=== PATIENT | female | born 1940 | race Caucasian/White ===

== ENCOUNTER → 2017-05-20 | Outpatient (CLI) | payer OTHER | LOC: FIMAGING 13:14 | PROVIDERS: ATTEND Internal Medicine | DX: M79.89 Other specified soft tissue disorders (principal) ==

== ENCOUNTER → 2017-10-25 | Outpatient (CLI) | payer OTHER | LOC: FIMAGING 12:46 | PROVIDERS: ATTEND Internal Medicine | DX: Z12.31 Encounter for screening mammogram for malignant neoplasm of breast (principal) | CPT/HCPCS: G0202 ==

== ENCOUNTER → 2018-08-15 | Outpatient (CLI) | payer OTHER ==
[~2018-08-15] MED LIST: IOPAMIDOL (ISOVUE-300) 100 ML BTL ONE
== END ==
LOC: FIMAGING 15:43
PROVIDERS: ATTEND Urology
DX: N13.0 Hydronephrosis with ureteropelvic junction obstruction (principal); K57.30 Diverticulosis of large intestine without perforation or abscess without bleeding; C67.9 Malignant neoplasm of bladder, unspecified; Z85.038 Personal history of other malignant neoplasm of large intestine
CPT/HCPCS: 74178; Q9967

== ENCOUNTER 2018-09-26 14:29 | Observation (INO) | payer OTHER ==
[~2018-09-26 14:29] MED LIST changes: -IOPAMIDOL (ISOVUE-300) 100 ML BTL ONE; +VANCOMYCIN 1.25 GM in NS 250 ML IV ONE; +VANCOMYCIN PHARMACY TO DOSE MISC ONE
[2018-09-26] MEDS ORDERED: LR 1,000 ML IV ONE (14:47)
[2018-09-26] MEDS ORDERED: EPINEPHrine 1 MG/ML INJ ONE (15:36)
[2018-09-26] MEDS ORDERED: BUPIVACAINE 0.25% 30 ML SDV ONE (15:36)
[2018-09-26] MEDS ORDERED: LIDOCAINE 1% 300 MG/30 ML SDV ONE (15:37)
[2018-09-26] MEDS ORDERED: HEPARIN 1000 UNIT/1 ML MDV ONE ×3 (15:37→19:13)
[2018-09-26] MEDS ORDERED: DEXAMETHASONE 4 MG/ML VIAL IVP PRN (15:40)
[2018-09-26] MEDS ORDERED: ACETAMINOPHEN 500 MG TAB PO PRN (15:40)
[2018-09-26] MEDS ORDERED: MIDAZOLAM 2 MG/2 ML VIAL IVP ONE ×2 (15:40→19:00)
[2018-09-26] MEDS ORDERED: ALBUTEROL 3 ML DEYVIAL IH PRN ×2 (15:40→19:00)
[2018-09-26] MEDS ORDERED: oxyCODONE IR 5 MG TAB PO PRN (15:40)
[2018-09-26] MEDS ORDERED: HYDROmorphONE/DILAUDID 2 MG/ML INJ IVP PRN (15:40)
[2018-09-26] MEDS ORDERED: LR 500 ML IV PRN (15:40)
[2018-09-26] MEDS ORDERED: NALOXONE HCL 0.4 MG/ML INJ IVP PRN ×2 (15:40→19:00)
[2018-09-26] MEDS ORDERED: ONDANSETRON 4 MG/2 ML VIAL IVP PRN ×2 (15:40→19:00)
--- NOTE | 2018-09-26 15:44 | PDANEPAE ---
ANE History of Present Illness Portacat ANE Past Medical History - Cardiovascular History Hx Hypertension: Yes Hx Arrhythmias: Yes Hx Chest Pain: No Hx Coronary Artery / Peripheral Vascular Disease: No Hx CHF / Valvular Disease: No Hx Palpitations: No Cardiovascular History Comment: second degree AV block type 1. htn. mixed hyperlipidemia. [place] [facility] [place] Pulmonary History Hx COPD: No Hx Asthma/Reactive Airway Disease: Yes Hx Recent Upper Respiratory Infection: No Hx Oxygen in Use at Home: No Hx Sleep Apnea: No Sleep Apnea Screening Result - Last Documented: Positive Pulmonary History Comment: asthma- instructed pt to bring inhalers. aranza positive- uses cpap- instructed pt to bring to hospital - Neurologic History Hx Cerebrovascular Accident: No Hx Seizures: No Hx Dementia: No - Endocrine History Hx Diabetes: No Endocrine History Comment: hypothyroidism - Renal History Hx Renal Disorders: Yes Renal History Comment: current bladder ca. hx of uti's - Liver History Hx Hepatic Disorders: No - Neurological & Psychiatric Hx Hx Neurological and Psychiatric Disorders: No Neurological / Psychiatric History Comment: anxious about cancer and what she is facing - Cancer History Hx Cancer: Yes Cancer History Comment: bladder currently. hx of colon ca in 2014 - Congenital Disorder History Hx Congenital Disorders: No - GI History Hx Gastrointestinal Disorders: Yes Gastrointestinal History Comment: hx of colon ca. tends towards constipation- uses otc and fiber supplements - Other Health History Other Health History: wears reading glasses. dental implants - Chronic Pain History Chronic Pain: No - Surgical History Prior Surgeries: tumor removal in bladder 4 weeks ago at [facility] with Fronzak. colon resection with Johs 09/2015. cysto with tumor resection with Rose and 2006 ANE Review of Systems Review of Systems: - Exercise capacity METS (RN): 4 METS ANE Patient History - Allergies Allergies/Adverse Reactions: SILVINO Inhibitors [Silvino Inhibitors] Allergy (Verified 09/22/18 11:05) angiodema formoterol [From Dulera] Allergy (Verified 09/22/18 11:05) terrible chest pains mometasone furoate [From Dulera] Allergy (Verified 09/22/18 11:05) terrible chest pains Penicillins Allergy (Verified 09/22/18 11:05) Rash bcg chemo drug Allergy (Uncoded 09/22/18 11:05) - Home Medications Home Medications: Atorvastatin Calcium [Lipitor 20 mg (*)] 06/17/12 [Last Taken 09/25/18] Levothyroxine [Synthroid 88 mcg (*)] 06/17/12 [Last Taken 09/26/18] Herbals/Supplements -Info Only 09/22/18 [Last Taken 09/22/18] Proair Hfa 09/22/18 [Last Taken 09/26/18] Qvar Redihaler 09/22/18 [Last Taken 09/26/18] amLODIPine BESYLATE [Norvasc 2.5 mg (*)] 20 mg 09/22/18 [Last Taken 09/26/18] - NPO status NPO Since - Liquids (Date): 09/26/18 NPO Since - Liquids (Time): 07:00 NPO Since - Solids (Date): 09/26/18 NPO Since - Solids (Time): 03:00 - Smoking Hx Smoking Status: Never smoked - Family Anes Hx Family Hx Anesthesia Complications: none ANE Labs/Vital Signs - Vital Signs Blood Pressure: 152/71 Heart Rate: 74 Respiratory Rate: 16 O2 Sat (%): 95 Height: 160.02 cm Weight: 84.368 kg ANE Physical Exam - Airway Neck exam: FROM Mallampati Score: Class 2 Mouth exam: normal dental/mouth exam - Pulmonary Pulmonary: clear to auscultation - Cardiovascular Cardiovascular: regular rate and rhythym - ASA Status ASA Status: III ANE Anesthesia Plan Anesthesia Plan: GA with mask
[2018-09-26] MEDS ORDERED: MIDAZOLAM 2 MG/2 ML VIAL ONE (18:16)
[2018-09-26] MEDS ORDERED: PROPOFOL/EMULSION 500 MG/50 ML BOTTLE IV ONE (18:18)
[2018-09-26] MEDS ORDERED: fentaNYL 100 MCG/2 ML INJ ONE (18:21)
--- NOTE | 2018-09-26 18:40 | PDHPUP ---
History & Physical Update H&P update statement: This history and physical update is based on an assessment of the patient which was completed after admission or registration (within 24 hours), but prior to the surgery/procedure. H&P update: H&P reviewed & patient examined, no change in patient's condition since H&P completed
[2018-09-26] MEDS ORDERED: fentaNYL 100 MCG/2 ML INJ IVP PRN (19:00)
--- NOTE | 2018-09-26 19:36 | POSTANESTH ---
Post Anesthetic Evaluation Cardiovascular Status: Normal, Stable Respiratory Status: Normal, Stable Level of Consciousness/Mental Status: Can Participate in Eval Pain Control: Adequate, Prn Tx Ordered Nausea/Vomiting Control: Adequate, Prn Tx Ordered Complications Possibly Related to Anesthesia: None Noted
[2018-09-26] MEDS ORDERED: ONDANSETRON DISINTEGRATING 4 MG TAB PO PRN (19:39)
--- NOTE | 2018-09-26 19:43 | POSTOPPROG ---
Post Op Note Date of Operation: 09/26/18 Surgeon: Dipak Glez (, FACS) Anesthesiologist: Crystal Shin MD Anesthesia: LMA Pre-op Diagnosis: bladder cancer Indication: need for chemotherapy access Procedure: placement left subclavian venous port Findings: #[id number] dictated Inf/Abcess present in the surg proc area at time of surgery?: No EBL: Minimal (10 ml)
[2018-09-26] MEDS ORDERED: LORazepam 1 MG TAB PO PRN (20:17)
[2018-09-26] MEDS ORDERED: OXYCODONE/APAP 5/325 TAB ONE (20:21)
[2018-09-26] MEDS: OXYCODONE/APAP 5/325 TAB PO PRN ×2 (20:25→20:47)
--- NOTE | 2018-09-26 20:29 | PDGENHP ---
History and Physical History and Physical: 78 y/o female s/p left subclavian venous port placement for adenocarcinoma of the bladder. She was found to have a small left pneumothorax on her post procedure film. She has no respiratory distress. 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 adenoCA colon 2014 (right colectomy/22 nodes neg) bladder cancer 2018 (adenocarcinoma) COPD/asthma HTN all: KATHY inhibitors, PCN SH: /lives at [facility] FH: brother of renal cell CA at age 32 ROS: denies SOB PE: BP 160/94 P 70 R 14 O2 sat 96% 2 lpm Pleasant elderly female in mild emotional distress/ HEENT: no crepitance, trachea midline Lungs: clear to ausc/no wheezing CVS: RRR CXR: left subclavian venous port with tip at the SVC/RA border, small left pneumothorax (<5%) Imp: post procedure left pneumothorax, asymptomatic Rec: admit obs, pulse oximetry CXR in AM discussed possible need for chest tube Tessa Glez MD, FACS
[2018-09-26] MEDS ORDERED: HYDROCODONE/APAP 5/325 TAB PO PRN (20:39)
[2018-09-26] MEDS ORDERED: ALBUTEROL HFA 200 PUFFS/8.5 GM MDI IH PRN (22:30)
--- NOTE | 2018-09-26 22:57 | GOP ---
DATE OF OPERATION: 09/26/2018 SURGEON: Dipak Glez MD, FACS ANESTHESIA: Monitored anesthesia care. ANESTHESIOLOGIST: Crystal Shin MD. PREOPERATIVE DIAGNOSIS: 1. Bladder cancer. 2. Need for venous access for chemotherapy. POSTOPERATIVE DIAGNOSIS: 1. Bladder cancer. 2. Need for venous access for chemotherapy. PROCEDURE PERFORMED: Placement of left subclavian venous port. FINDINGS: Left subclavian venous port placement with postprocedural chest x- ray pending at time of dictation. ESTIMATED BLOOD LOSS: 10 cc. DESCRIPTION OF PROCEDURE: After informed consent was obtained, the patient was brought to the operating room and placed supine. Both arms were tucked. A gel pad was placed between the scapulae. The chest wall was prepped and sterilely draped in the usual fashion. Before proceeding, a time-out and identification of the patient was performed. With the table in Trendelenburg position. 1% lidocaine plain was used to infiltrate the chest wall and down to the clavicle. An 18-gauge thin wall needle was then used to cannulate the left subclavian vein. A flexible J-wire was introduced and advanced without resistance. Some ectopy was noted, and the wire was withdrawn slightly. The needle was removed. A reservoir site was infiltrated slightly below and medial to the venous puncture site. A transverse skin incision was made, and skin and subcutaneous tissues were dissected and a small pocket created in the subcutaneous plane. An 8-Micronesian polyurethane catheter was tunneled from the reservoir site to the venipuncture site where a small breana had been made in the skin with a 15 scalpel blade. The catheter was flushed with dilute heparin solution. A dilator and peel-away catheter were passed over the wire. The wire and dilator were removed. The 8- Micronesian polyurethane catheter was passed through the peel-away catheter and advanced without resistance. Under direct fluoroscopy, the tip of the catheter was positioned such that it lay at the superior vena cava right atrial junction by withdrawal. The external portion of the catheter was cut to length and attached to the reservoir with a locking hub. The port was accessed with a Swenson needle, and good venous return was noted. It was then flushed with dilute heparin solution followed by 3 cc of 1000 unit/cc heparin. The reservoir was secured to the deep subcutaneous fat with interrupted 3-0 Prolene sutures to prevent rotation. The incisions were closed with 4-0 Vicryl suture for the deep subcutaneous tissues and 4-0 Monocryl suture in a subcuticular fashion for the skin. Topical Mastisol and Steri-Strips were applied. Needle, sponge, and instrument count were correct. COMPLICATIONS: None. /[id number]/MODL MTDD
[2018-09-26] MEDS ORDERED: ATORVASTATIN CALCIUM 20 MG TAB PO SCH (23:00)
[2018-09-26] MEDS: BECLOMETHASONE QVAR 80 REDIHALER 120 INH/10.6 GM MDI IH SCH (23:23)
[2018-09-27] MEDS ORDERED: LEVOTHYROXINE 88 MCG TAB PO SCH (06:00)
--- NOTE | 2018-09-27 08:25 | SOAPPROG ---
SOAP Progress Note Assessment/Plan: Assessment: Plan: Subjective: resting comfortably/anxious to start chemo tomorrow denies SOB/chest pain Objective: Vital Signs Temp Pulse Resp BP Pulse Ox 36.4 C 69 12 156/79 H 96 09/26/18 21:41 09/26/18 21:41 09/26/18 21:41 09/26/18 21:41 09/26/18 21:41 09/26/18 09/27/18 09/28/18 05:59 05:59 05:59 Intake Total 300 Balance 300 Physical Exam - Physical Exam General Appearance: no apparent distress Neck: non-tender, full range of motion Respiratory: lungs clear, normal breath sounds Cardiac/Chest: regular rate, rhythm, other (left subclavian port site uncomplicated) ICD10 Worksheet Patient Problems: Problems Problem Status Onset Angioedema Active Asthma Active Dyslipidemia Active Essential hypertension Active First degree atrioventricular block Active Heart block Active Mobitz type I incomplete atrioventricular block Active
[2018-09-27 08:31] VITALS: BP 126/80
--- NOTE | 2018-09-27 08:47 | PDDCSUM ---
Discharge Summary Discharge Summary: #[id number] SUSANNA Glez MD, FACS
[2018-09-27 08:55] LABS: PLATELET COUNT 231 10^3/uL (150-400)
--- NOTE | 2018-09-27 09:10 | GDS ---
DISCHARGE DIAGNOSES: 1. Adenocarcinoma of the bladder. 2. Status post venous port placement. 3. Postprocedural pneumothorax. 4. Hypertension. 5. Chronic obstructive pulmonary disease and asthma. 6. Hyperlipidemia. 7. History of bladder cancer 2007. 8. History of colon cancer 2014 (T3 N0), status post right colectomy. HOSPITAL COURSE: For details of admission history and physical, please see dictated summary. Briefl y, the patient is a 78-year-old female with a relatively asymptomatic presentation of an adenocarcino ma of the bladder. The etiology of this remains uncertain as she had a remote history of transitiona l cell carcinoma of the bladder in 2007, and had a right colectomy for adenocarcinoma of the colon in 2014. She did not receive adjuvant treatment after her colon cancer surgery (stage II) and had rece ived prior BCG treatment in her bladder. The patient was admitted for outpatient port placement and unfortunately had a postoperative small pneumothorax. She was admitted for observation and supplemen chrissy oxygen. Followup chest x-ray approximately 12 hours later showed a very small pneumothorax that had increased slightly in size, perhaps from a 2% to 3% to 5% pneumothorax, but not enough to require intervention at this time. We discussed options of management and I recommended she return in the [facility] for repeat chest x-ray before starting chemotherapy tomorrow. Patient was afebrile, ambulatory. At time of discharge, her room air O2 saturation was 91%, temperat ure 36.5, pulse 78, and blood pressure 126/80. At time of discharge, the patient will return to [facility] and return in the morning for an out patient chest x-ray before proceeding with chemotherapy and return more urgently should she develop c hest pain or dyspnea. DISCHARGE MEDICATIONS: Include the following: Albuterol 2 puffs q.4 hours p.r.n., amlodipine 10 mg p.o. q.h.s., Lipitor 20 mg p.o. q.h.s., beclomethasone inhaler 1 inhalation b.i.d., hydrocodone 5/325 mg 1 p.o. q.4 hours p.r.n. pain #10, levothyroxine 88 mcg p.o. daily, lorazepam 1 mg p.o. q.4 hours p.r.n. #10, Zofran ODT 4 mg p.o. q.4 hours p.r.n. nausea #10. Patient will resume her vitamins and h erbal supplements at home. /[id number]/MODL
[2018-09-27] MEDS: BECLOMETHASONE QVAR 80 REDIHALER 120 INH/10.6 GM MDI IH SCH (09:30)
[2018-09-27] MEDS: OXYCODONE/APAP 5/325 TAB PO PRN (10:10)
--- NOTE | 2018-09-27 14:36 | ASDISCHSUM ---
Discharge Information Plan Status:Home with No Needs Medically Cleared to Leave:09/27/2018 Discharge Date:09/27/2018 10:39 AM CM D/C Disposition:Home, Routine, Self-Care ADT D/C Disposition:Home, Routine, Self-Care Projected Discharge Date:09/27/2018 10:39 AM Transportation at D/C:Family Discharge Delay Reason: Follow-Up Date:09/27/2018 10:39 AM Discharge Slot: Final Diagnosis: Placement Information Patient Contact Information Contact Name:PARAS Relationship:Daniele Address: City: [facility] Phone: [facility] Code: Email: Financial Information Financial Class:Medicare Primary Plan Desc:MEDICARE OUTPATIENT Primary Plan Number:[id number] Secondary Plan Desc:JAZMIN ROBISON O Secondary Plan Number:[id number] Assessment Information LACE LACE Length of stay for Answers: Less than 1 day current admission Acuity / Level of Answers: No Care: Did the patient have an inpatient admission? Comorbidities - select Answers: Any tumor (including all that apply lymphoma or leukemia) Chronic pulmonary disease Other Notes: HTN; HLD # of Emergency department Answers: 0 visits in the last 6 months Score: 5 Date Signed: 09/27/2018 02:33 PM Electronically Signed By:KAROL Luz Case Management Discharge Plan Note Case Management Discharge Discharge Order Complete? Answers: Yes Patient to Obtain Answers: via Family Medications Transportation Arranged Answers: Family/Friends Discharge Comments Notes: Pt was admitted for observation after developing a pneumothorax after a planned port placement. She has a hx of bladder and colon CA, HTN, COPD, asthma. She is discharging back to [place] today with no CM needs. Date Signed: 09/27/2018 02:34 PM Electronically Signed By:KAROL Luz Intervention Information
== END 2018-09-27 10:39 | disposition home or self-care (01) ==
LOC: FSGY 14:29 → F3E 20:14 → F2W 21:00
PROVIDERS: ADMIT Surgery; ATTEND Surgery
DX: J95.811 Postprocedural pneumothorax (principal); C67.9 Malignant neoplasm of bladder, unspecified; I10 Essential (primary) hypertension; J44.9 Chronic obstructive pulmonary disease, unspecified; J45.909 Unspecified asthma, uncomplicated; E78.2 Mixed hyperlipidemia; E03.9 Hypothyroidism, unspecified; G47.33 Obstructive sleep apnea (adult) (pediatric); Z85.51 Personal history of malignant neoplasm of bladder; Z85.038 Personal history of other malignant neoplasm of large intestine; Z87.891 Personal history of nicotine dependence; Z87.440 Personal history of urinary (tract) infections; Z80.3 Family history of malignant neoplasm of breast; Z90.49 Acquired absence of other specified parts of digestive tract; Z88.0 Allergy status to penicillin
CPT/HCPCS: 36561; 71045; 76001; C1788; J0171; J1642; J2250; J2704; J3010; J3370

== ENCOUNTER → 2018-09-28 | Outpatient (CLI) | payer OTHER | LOC: FIMAGING 08:17 | PROVIDERS: ATTEND Surgery | DX: J93.9 Pneumothorax, unspecified (principal); Z95.9 Presence of cardiac and vascular implant and graft, unspecified ==

== ENCOUNTER → 2018-09-30 | Outpatient (CLI) | payer OTHER | LOC: FIMAGING 14:43 | PROVIDERS: ATTEND Surgery | DX: J93.9 Pneumothorax, unspecified (principal); Z95.9 Presence of cardiac and vascular implant and graft, unspecified ==

== ENCOUNTER → 2018-10-12 | Outpatient (CLI) | payer OTHER | LOC: FIMAGING 14:38 | PROVIDERS: ATTEND Surgery | DX: J93.9 Pneumothorax, unspecified (principal); Z95.828 Presence of other vascular implants and grafts ==

== ENCOUNTER → 2018-10-14 | Outpatient (CLI) | payer OTHER | LOC: FIMAGING 14:34 | PROVIDERS: ATTEND Surgery | DX: J98.11 Atelectasis (principal) ==

== ENCOUNTER → 2018-11-08 | Outpatient (CLI) | payer OTHER | LOC: BMCIMAGING 10:14 | PROVIDERS: ATTEND Internal Medicine | DX: Z12.31 Encounter for screening mammogram for malignant neoplasm of breast (principal); Z80.3 Family history of malignant neoplasm of breast ==

== ENCOUNTER → 2018-11-30 | Outpatient (CLI) | payer OTHER | LOC: BMCIMAGING 14:40 | PROVIDERS: ATTEND Allergy & Immunology Allergy | DX: R05 Cough (principal); Z95.828 Presence of other vascular implants and grafts ==

== ENCOUNTER → 2018-12-09 | Outpatient (CLI) | payer OTHER | LOC: FIMAGING 12:53 | PROVIDERS: ATTEND Nurse Practitioner | DX: N60.01 Solitary cyst of right breast (principal); Z80.3 Family history of malignant neoplasm of breast ==

== ENCOUNTER → 2019-03-14 | Outpatient (CLI) | payer OTHER ==
[~2019-03-14] MED LIST changes: +IOPAMIDOL (ISOVUE 370) 100 ML BTL IV ONE; -VANCOMYCIN 1.25 GM in NS 250 ML IV ONE; -VANCOMYCIN PHARMACY TO DOSE MISC ONE
== END ==
LOC: FIMAGING 13:31
PROVIDERS: ATTEND Internal Medicine Hematology & Oncology
DX: Z45.2 Encounter for adjustment and management of vascular access device (principal); C18.2 Malignant neoplasm of ascending colon; C67.9 Malignant neoplasm of bladder, unspecified
CPT/HCPCS: 76000; J1642; Q9967